=== PATIENT | male | born 1985 | race Caucasian/White ===

== ENCOUNTER 2018-10-04 12:27 | Emergency (ER) | payer MEDICAID, SELFPAY ==
[2018-10-04 12:28] VITALS: BP 136/84; PULSE 90; RESP 16; TEMP 36.9; O2SAT 97; BMI 35.5
--- NOTE | 2018-10-04 13:45 | ED.VISSUMM ---
- ER Visit Summary Date of Service: 10/04/18 Chief Complaint: Healthy 33-year-old male had pain in his left lower back/hip region for the past 2 days and noticed a painful vesicular appearing rash this morning. Denies any recent contacts or exposures. It only involves the left side and does not cross the midline. He denies history of immunosuppression. Physical Examination: Has a fairly classic appearing to be zoster rash on his left lower back/hip region crossing anteriorly into the suprapubic area. Test Results: None performed Emergency Department Course and Treatment: I will treat him with pain medication, Valtrex, and prednisone Treatment Plan: Disposition: Home stable Impression: Initial encounter herpes zoster This note was generated with [employer] dictation software. It may contain incorrect words, spelling, and punctuation that were not noted in review of the chart prior to signing ED Disposition - Plan for ED Patient: Chief Complaint: Rash Instructions: ED Shingles Prescriptions: Oxycodone HCl/Acetaminophen [Percocet 5/325] 1 tablet PO Q6H PRN PRN 3 Days #12 tablet PRN Reason: Pain Prednisone 10 mg PO DAILY #63 tablet Valacyclovir HCl [Valtrex] 1,000 mg PO BID #14 tablet Referrals: Care Physician,No Primary [Primary Care Provider] -
--- NOTE | 2018-10-04 13:49 | ED.DCSUM_ITS ---
- ER Visit Summary Date of Service: 10/04/18 Chief Complaint: Healthy 33-year-old male had pain in his left lower back/hip region for the past 2 days and noticed a painful vesicular appearing rash this morning. Denies any recent contacts or exposures. It only involves the left side and does not cross the midline. He denies history of immunosuppression. Physical Examination: Has a fairly classic appearing to be zoster rash on his left lower back/hip region crossing anteriorly into the suprapubic area. Test Results: None performed Emergency Department Course and Treatment: I will treat him with pain medication, Valtrex, and prednisone Treatment Plan: Disposition: Home stable Impression: Initial encounter herpes zoster This note was generated with [employer] dictation software. It may contain incorrect words, spelling, and punctuation that were not noted in review of the chart prior to signing ED Disposition - Plan for ED Patient: Chief Complaint: Rash Instructions: ED Shingles Prescriptions: Oxycodone HCl/Acetaminophen [Percocet 5/325] 1 tablet PO Q6H PRN PRN 3 Days #12 tablet PRN Reason: Pain Prednisone 10 mg PO DAILY #63 tablet Valacyclovir HCl [Valtrex] 1,000 mg PO BID #14 tablet Referrals: Care Physician,No Primary [Primary Care Provider] -
[2018-10-04] MEDS: oxyCODONE 5 MG Tablet PO (14:28)
[2018-10-04] MEDS: Acyclovir 800 MG Tablet PO (14:28)
[2018-10-04 14:33] VITALS: RESP 17
== END 2018-10-04 14:37 | disposition home or self-care (01) ==
PROVIDERS: Emergency Provider Emergency Medicine
DX: B02.9 Zoster without complications (principal)
CPT/HCPCS: 99283

== ENCOUNTER 2019-02-14 15:35 | Emergency (ER) | payer MEDICAID, SELFPAY ==
[2019-02-14 15:36] VITALS: BP 126/83; PULSE 72; RESP 18; TEMP 35.9; O2SAT 97; BMI 30.7
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
--- NOTE | 2019-02-14 16:07 | ED.RN ---
pt states he doesn't have a dr and needs a work note
== END 2019-02-14 16:07 | disposition home or self-care (01) ==
LOC: ED 16:04
PROVIDERS: Emergency Provider Emergency Medicine
DX: M54.9 Dorsalgia, unspecified (principal); G89.29 Other chronic pain
CPT/HCPCS: 99282